=== PATIENT | male | born 1965 | race American Indian/Alaskan Native ===

== ENCOUNTER 2018-05-08 14:58 | Inpatient (IN) | payer MEDICAID ==
[2018-05-08] MEDS ORDERED: Sodium Chloride 0.9% 1,000 ML IV ONE (15:45)
[2018-05-08] MEDS ORDERED: Sodium Chloride 0.9% 1,000 ML ONE ×2 (16:15→18:59)
[2018-05-08 16:18] LABS: BASO # 0.1 K/uL (0.0-0.2); BASO % 0.4 % (0.0-2.0); EOS # 0.1 K/uL (0.0-0.7); EOS % 0.7 % (0.0-4.0); HEMOGLOBIN 12.9 g/dL (12.0-18.0); LYMPH # 1.2 K/uL (1.0-4.3); LYMPH % 8.3 % (20.0-40.0); MEAN CELL VOLUME 83.7 fL (80.0-94.0); MEAN CORPUSCULAR HEMOGLOBIN 27.5 pg (27.0-31.0); MEAN CORPUSCULAR HGB CONC 32.8 g/dL (33.0-37.0); MEAN PLATELET VOLUME 9.3 fL (7.2-11.7); MONO % 14.3 % (0.0-10.0); NEUT # 10.7 K/uL (1.8-7.0); NEUT % 76.3 % (50.0-75.0); PLATELET COUNT 260 K/uL (130-400); RBC 4.69 Mil/uL (4.40-5.90); RED CELL DISTRIBUTION WIDTH 15.1 % (11.5-14.5)
--- NOTE | 2018-05-08 16:18 | RAD ---
HISTORY: fever COMPARISON: No prior. TECHNIQUE: Chest PA and lateral FINDINGS: Examination limited by habitus. LUNGS: Left upper lobe hazy consolidation. Please note that chest x-ray has limited sensitivity for the detection of pulmonary masses. PLEURA: No significant pleural effusion identified. No definite pneumothorax . CARDIOVASCULAR: The cardiomediastinal silhouette appears within normal limits of size. OSSEOUS STRUCTURES: No acute osseous abnormality identified. VISUALIZED UPPER ABDOMEN: Unremarkable. OTHER FINDINGS: None. IMPRESSION: Hazy left upper lobe consolidation consistent with pneumonia.
[2018-05-08 16:21] LABS: SQUAMOUS EPITHIAL < 1 /hpf (0-5); URINE BACTERIA RARE (<OCC); URINE BILIRUBIN NEGATIVE (NEGATIVE); URINE CLARITY Hazy (Clear); URINE COLOR Amber (YELLOW); URINE GLUCOSE (UA) NORMAL (Normal); URINE HYALINE CAST >20 /lpf (0-2); URINE LEUKOCYTE ESTERASE NEG Leu/uL (Negative); URINE PROTEIN 2+ mg/dL (NEGATIVE); URINE UROBILINOGEN NORMAL mg/dL (0.2-1.0)
[2018-05-08 16:23] LABS: URINE BLOOD TRACE (NEGATIVE)
--- NOTE | 2018-05-08 16:25 | C.PDOC ---
History Of Present Illness 40 year old female presents to the ED for evaluation of subjective fever associated with body aches for the last 4-5 days. Patient reports he visited [place] today where he has a dizzy episode near syncope and was sent to the ED. Denies dysuria, vomiting, diarrhea, rash, recent travel, chest pain, shortness of breath, cough, sore throat, and any other associated symptoms. Time Seen by Provider: 05/08/18 15:19 Chief Complaint (Nursing): Flu-like Symptoms History Per: Patient History/Exam Limitations: no limitations Onset/Duration Of Symptoms: Days Current Symptoms Are (Timing): Still Present Recent travel outside of the [place]: No Past Medical History Reviewed: Historical Data, Nursing Documentation, Vital Signs Vital Signs: Last Vital Signs Temp 99.5 F 05/08/18 15:08 Pulse 100 H 05/08/18 15:08 Resp 18 05/08/18 15:08 BP 150/102 H 05/08/18 15:08 Pulse Ox 99 05/08/18 15:08 Family History: States: Unknown Family Hx - Social History Hx Alcohol Use: Yes Hx Substance Use: No - Immunization History Hx Tetanus Toxoid Vaccination: No Hx Influenza Vaccination: No Hx Pneumococcal Vaccination: No Review Of Systems Except As Marked, All Systems Reviewed And Found Negative. Constitutional: Positive for: Fever (subjective.). Negative for: Chills Cardiovascular: Negative for: Chest Pain Respiratory: Negative for: Cough, Shortness of Breath Gastrointestinal: Negative for: Nausea, Vomiting, Diarrhea, Other (dysuria.) Skin: Negative for: Rash Neurological: Positive for: Dizziness, Other (near syncope. ) Physical Exam - Physical Exam Appears: Non-toxic, No Acute Distress Skin: Normal Color, Warm, Dry Head: Atraumatic, Normacephalic Eye(s): bilateral: Normal Inspection Oral Mucosa: Moist Neck: Normal ROM, Supple Chest: Symmetrical, No Deformity Cardiovascular: Rhythm Regular, No Murmur Respiratory: Normal Breath Sounds, No Rales, No Rhonchi, No Wheezing Gastrointestinal/Abdominal: Normal Exam, Soft, No Tenderness Extremity: Normal ROM (x4) Neurological/Psych: Oriented x3, Normal Speech, Normal Motor, Normal Sensation, Normal Reflexes Gait: Steady ED Course And Treatment - Laboratory Results Result Diagrams: 05/08/18 16:12 05/08/18 16:12 O2 Sat by Pulse Oximetry: 99 (RA) Pulse Ox Interpretation: Normal - Other Rad CXR X-Ray: Viewed By Me, Read By Radiologist Interpretation: FINDINGS: Examination limited by habitus. LUNGS: Left upper lobe hazy consolidation. Please note that chest x-ray has limited sensitivity for the detection of pulmonary masses. PLEURA: No significant pleural effusion identified. No definite pneumothorax . CARDIOVASCULAR: The cardiomediastinal silhouette appears within normal limits of size. OSSEOUS STRUCTURES: No acute osseous abnormality identified. VISUALIZED UPPER ABDOMEN: Unremarkable. OTHER FINDINGS: None. IMPRESSION: Hazy left upper lobe consolidation consistent with pneumonia. Medical Decision Making Medical Decision Making: Plan: --Blood sent. --Glucose, POC Routine. --Influenza A B --Urinalysis --CXR Blood cultures sent. PAtient was found to have a creatinine of 1.7 which is new and elevated WBC. CAse was discussed with Dr. Vaca who agrees to place the patient on Obs regular. Avelox IV ordered. Disposition - Disposition Disposition: HOSPITALIZED Disposition Time: 17:00 Condition: STABLE - POA Present On Arrival: None - Clinical Impression Clinical Impression: Acute kidney injury, Pneumonia - PA / COMMUNICATIONS INTERN / Resident Statement MD/DO has reviewed & agrees with the documentation as recorded. - Scribe Statement The provider has reviewed the documentation as recorded by the Scribe (Teresa Newell) All medical record entries made by the Scribe were at my direction and personally dictated by me. I have reviewed the chart and agree that the record accurately reflects my personal performance of the history, physical exam, medical decision making, and the department course for this patient. I have also personally directed, reviewed, and agree with the discharge instructions and disposition.
[2018-05-08 16:30] LABS: CALCIUM 8.2 mg/dl (8.6-10.4)
[2018-05-08 17:11] LABS: BANDS 1 % (0-2); EOSINOPHIL 2 % (0-4); LYMPHOCYTE 10 % (20-40); MONOCYTE 15 % (0-10); TOTAL CELLS COUNTED 100
[2018-05-08 17:12] LABS: NEUTROPHIL 72 % (50-75); PLATELET ESTIMATE NORMAL (NORMAL)
[2018-05-08] MEDS ORDERED: Moxifloxacin IV 400mg/250ml NS 400 MG/250 ML BAG IV ONE (17:41)
[2018-05-08] MEDS ORDERED: Sodium Chloride 0.9% 1,000 ML IV SCH (18:00)
--- NOTE | 2018-05-08 18:15 | CP.PCM.HP ---
<Sheree Rubio - Last Filed: 05/08/18 18:57> History of Present Illness - History of Present Illness History of Present Illness: CC: Fever HPI: Patient is a 52 year old male with history of chronic sinusitis, who presents to the ED with complaints of subjective fever, generalized body aches and dry cough that started last Monday. Patient reports that he woke up with a fever last week Monday morning with Tmax of 102.5 at home, which he has been taking over the counter Tylenol for every 6 hours. Patient admits to associated symptoms of dry cough that is exacerbated with laying down, diffuse headache, blurry vision, dizziness (first episode during the weekend while [place], which was resolved with sitting down and second episode this morning), chills, onset of night sweat that started last night, palpitations, loss of appetite. 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 Denies hx of current or former tobacco use and illicit drug use but admits to occasional wine intake Present on Admission - Present on Admission Any Indicators Present on Admission: No Review of Systems - Constitutional Constitutional: Chills, Fatigue, Fever, Headache, Malaise, Night Sweats, Weakness. absent: Frequent Falls, Increased Appetite, Weight Loss - EENT Eyes: Blurred Vision Ears: Dizziness - Cardiovascular Cardiovascular: Palpitations. absent: Chest Pain, Chest Pain at Rest, Diaphoresis, Dyspnea, Dyspnea on Exertion, Leg Edema - Respiratory Respiratory: Cough. absent: Wheezing, Snoring - Gastrointestinal Gastrointestinal: absent: Abdominal Pain, Belching, Bloating, Constipation, Diarrhea, Hematochezia, Nausea, Vomiting - Genitourinary Genitourinary: absent: Change in Urinary Stream, Difficulty Urinating, Dysuria - Musculoskeletal Musculoskeletal: absent: Back Pain - Integumentary Integumentary: absent: Bleeding Lesions, Change in Nails, Dry Skin - Neurological Neurological: Dizziness. absent: Confusion, Disequilibrium, Lack of Coordination, Weakness - Psychiatric Psychiatric: Change in Appetite. absent: Anxiety - Endocrine Endocrine: Fatigue, Palpitations Past Patient History - Past Social History Smoking Status: Never Smoked - PSYCHIATRIC Hx Substance Use: No - SURGICAL HISTORY Hx Surgeries: No - ANESTHESIA Hx Anesthesia: No Meds Home Medications: Home Medication List Medication Instructions Recorded Confirmed Type Levofloxacin [Levaquin] 750 mg PO DAILY #10 tablet 05/12/18 Rx Allergies/Adverse Reactions: Allergies Allergy/AdvReac Type Severity Reaction Status Date / Time No Known Allergies Allergy Verified 05/08/18 15:17 Physical Exam - Constitutional Appears: No Acute Distress - Head Exam Head Exam: ATRAUMATIC, NORMAL INSPECTION - Eye Exam Eye Exam: EOMI, Normal appearance Pupil Exam: NORMAL ACCOMODATION, PERRL - ENT Exam ENT Exam: Mucous Membranes Dry Additional comments: No exudate, no erythema - Neck Exam Neck exam: Negative for: Lymphadenopathy, Tenderness, Thyromegaly - Respiratory Exam Respiratory Exam: Decreased Breath Sounds, NORMAL BREATHING PATTERN. absent: Accessory Muscle Use, Chest Wall Tenderness, Rhonchi, Wheezes Additional comments: Bilateral lower lobe (L>R) - Cardiovascular Exam Cardiovascular Exam: Tachycardia, REGULAR RHYTHM, +S1, +S2 - GI/Abdominal Exam GI & Abdominal Exam: Normal Bowel Sounds, Soft. absent: Diminished Bowel Sounds, Distended, Firm, Guarding, Tenderness - Extremities Exam Extremities exam: Positive for: normal inspection. Negative for: calf tenderness, pedal edema - Back Exam Back exam: NORMAL INSPECTION. absent: CVA tenderness (L), CVA tenderness (R) - Neurological Exam Neurological exam: Alert, Oriented x3 - Psychiatric Exam Psychiatric exam: Normal Affect, Normal Mood - Skin Skin Exam: Normal Color Results - Vital Signs Recent Vital Signs: Last Vital Signs Temp 99.5 F 05/08/18 15:08 Pulse 100 H 05/08/18 15:08 Resp 18 05/08/18 15:08 BP 150/102 H 05/08/18 15:08 Pulse Ox 99 05/08/18 16:35 - Labs Result Diagrams: 05/08/18 16:12 05/08/18 16:12 Labs: Laboratory Results - last 24 hr 05/08/18 05/08/18 05/08/18 15:14 16:12 16:12 WBC 14.0 H RBC 4.69 Hgb 12.9 Hct 39.2 MCV 83.7 MCH 27.5 MCHC 32.8 L RDW 15.1 H Plt Count 260 MPV 9.3 Neut % (Auto) 76.3 H Lymph % (Auto) 8.3 L Donley % (Auto) 14.3 H Eos % (Auto) 0.7 Baso % (Auto) 0.4 Neut # (Auto) 10.7 H Lymph # (Auto) 1.2 Donley # (Auto) 2.0 H Eos # (Auto) 0.1 Baso # (Auto) 0.1 Neutrophils % (Manual) 72 Band Neutrophils % 1 Lymphocytes % (Manual) 10 L Monocytes % (Manual) 15 H Eosinophils % (Manual) 2 Platelet Estimate Normal Sodium Potassium Chloride Carbon Dioxide Anion Gap BUN Creatinine Est GFR ( Amer) Est GFR (Non-Af Amer) POC Glucose (mg/dL) 106 Random Glucose Calcium Total Bilirubin AST ALT Alkaline Phosphatase Total Protein Albumin Globulin Albumin/Globulin Ratio Urine Color Urine Clarity Urine pH Ur Specific Pruden Urine Protein Urine Glucose (UA) Urine Ketones Urine Blood Urine Nitrate Urine Bilirubin Urine Urobilinogen Ur Leukocyte Esterase Urine WBC (Auto) Urine RBC (Auto) Ur Squamous Epith Cells Urine Bacteria Hyaline Casts Influenza Typ A,B (EIA) Negative for flu a/b 05/08/18 05/08/18 16:12 16:12 WBC RBC Hgb Hct MCV MCH MCHC RDW Plt Count MPV Neut % (Auto) Lymph % (Auto) Donley % (Auto) Eos % (Auto) Baso % (Auto) Neut # (Auto) Lymph # (Auto) Donley # (Auto) Eos # (Auto) Baso # (Auto) Neutrophils % (Manual) Band Neutrophils % Lymphocytes % (Manual) Monocytes % (Manual) Eosinophils % (Manual) Platelet Estimate Sodium 138 Potassium 4.0 Chloride 98 Carbon Dioxide 29 Anion Gap 15 BUN 22 H Creatinine 1.7 H Est GFR ( Amer) 52 Est GFR (Non-Af Amer) 43 POC Glucose (mg/dL) Random Glucose 116 H Calcium 8.2 L Total Bilirubin 0.6 AST 66 H ALT 87 H Alkaline Phosphatase 272 H Total Protein 8.2 Albumin 4.0 Globulin 4.2 H Albumin/Globulin Ratio 1.0 Urine Color Rasheeda Urine Clarity Hazy Urine pH 5.0 Ur Specific Pruden 1.025 Urine Protein 2+ H Urine Glucose (UA) Normal Urine Ketones Negative Urine Blood Trace Urine Nitrate Negative Urine Bilirubin Negative Urine Urobilinogen Normal Ur Leukocyte Esterase Neg Urine WBC (Auto) 5 Urine RBC (Auto) 4 H Ur Squamous Epith Cells < 1 Urine Bacteria Rare Hyaline Casts >20 H Influenza Typ A,B (EIA) Assessment & Plan (1) Community acquired pneumonia Assessment and Plan: On admission diagnostic work-up - WBC: 14 - Temp: 99.5 -Chest x-ray: Hazy left upper lobe consolidation - Negative for influenza and urine legionella pneumonia - F/u strep pneumoniae and Mycoplasma pneumoniae Medications/Management: - Rocephin 1gm IV daily - Zithromax 500mg IV daily - Florastor 250mg PO BID - Ice packs for fever; tylenol or motrin can be given once if fever is not con trolled with ice packs overnight. Will reconsider addition of Motrin in the am for fever prn Status: Acute (2) Acute kidney injury Assessment and Plan: Possibly secondary to dehydration BUN/Cr: 27/1.7 1/2 NS @ 100mls/hr Continue to monitor with am labs Status: Acute (3) Elevated liver enzymes Assessment and Plan: Possibly secondary to dehydration Continue hydration Continue to monitor with am labs - Rocephin is hepatic dosed as well as Zithromax Status: Acute (4) Elevated blood pressure reading without diagnosis of hypertension Assessment and Plan: Possible secondary to present illness Lopressor 5mg IV once IV hydration switched from NS to 1/2NS Continue to monitor with vital Q4H Will initiated anti-hypertensive medications after overnight BP trends Status: Acute (5) Prophylactic measure Assessment and Plan: GI: Not indicated DVT: SCDs Heart healthy diet All plans and management discussed with Dr. Velázquez Status: Acute <Meseret Velázquez - Last Filed: 05/23/18 18:21> Results - Vital Signs Recent Vital Signs: Last Vital Signs Temp 99.2 F 05/12/18 07:40 Pulse 108 H 05/12/18 07:40 Resp 20 05/12/18 07:40 BP 148/93 H 05/12/18 07:40 Pulse Ox 96 05/12/18 07:40 - Labs Result Diagrams: 05/12/18 11:34 05/12/18 11:34 Attending/Attestation - Attestation I have personally seen and examined this patient.: Yes I have fully participated in the care of the patient.: Yes I have reviewed all pertinent clinical information: Yes Notes (Text): seen and examined by me patient has acute renal failure likely secondary to pre renal,fever and pneumoni a continue antibiotics and hydrate follow plan discussed with the resident we will follow up his creatinine
[2018-05-08 18:29] LABS: LEGIONELLA AG URINE NEGATIVE (NEGATIVE)
[2018-05-08 18:54] LABS: ABG ALLEN TEST PO; ARTERIAL BLOOD GAS HCO3 24.1 mmol/L (21-28); ARTERIAL BLOOD GAS HEMOGLOBIN 12.3 g/dL (11.7-17.4); ARTERIAL BLOOD GAS O2 SAT 98.7 % (95-98); ARTERIAL BLOOD GAS PCO2 30 mm/Hg (35-45); ARTERIAL BLOOD GAS PH 7.47 (7.35-7.45); ARTERIAL BLOOD GAS PO2 90 mm/Hg (80-100); ARTERIAL BLOOD GAS TCO2 22.7 mmol/L (22-28)
[2018-05-08] MEDS ORDERED: Metoprolol 1 mg/ml Inj IVP ONE (19:06)
[2018-05-08] MEDS ORDERED: Moxifloxacin IV 400mg/250ml NS 400 MG/250 ML BAG IVPB ONE ×2 (19:17→19:37)
[2018-05-08] MEDS ORDERED: Metoprolol 1 mg/ml Inj ONE (19:26)
[2018-05-08] MEDS: Sodium Chloride 0.45% 1,000 ML IV SCH (19:30)
[2018-05-08] MEDS ORDERED: Sodium Chloride 0.45% 1,000 ML IV ONE (19:37)
[2018-05-08 23:21] VITALS: RESP 20
[2018-05-09] MEDS: Sodium Chloride 0.45% 1,000 ML IV SCH ×3 (05:15→20:37)
--- NOTE | 2018-05-09 07:38 | CP.PCM.PCO ---
Physician Communication Note - Physician Communication Note Physician Communication Note: f/u outpatient for pna and flu vaccines; patient is in hosp for pnuemonia
[2018-05-09 08:42] LABS: BASO # 0.1 K/uL (0.0-0.2); BASO % 0.6 % (0.0-2.0); EOS # 0.1 K/uL (0.0-0.7); EOS % 1.2 % (0.0-4.0); HEMOGLOBIN 12.7 g/dL (12.0-18.0); LYMPH # 1.4 K/uL (1.0-4.3); LYMPH % 11.8 % (20.0-40.0); MEAN CELL VOLUME 83.1 fL (80.0-94.0); MEAN CORPUSCULAR HEMOGLOBIN 27.7 pg (27.0-31.0); MEAN CORPUSCULAR HGB CONC 33.4 g/dL (33.0-37.0); MEAN PLATELET VOLUME 9.5 fL (7.2-11.7); MONO # 1.7 K/uL (0.0-0.8); MONO % 14.5 % (0.0-10.0); NEUT # 8.6 K/uL (1.8-7.0); NEUT % 71.9 % (50.0-75.0); RBC 4.57 Mil/uL (4.40-5.90); WHITE BLOOD COUNT 11.9 K/uL (4.8-10.8)
[2018-05-09 08:56] LABS: ALBUMIN 3.9 g/dL (3.5-5.0); ALT/SGPT 78 U/L (21-72); AST/SGOT 57 U/L (17-59); BLOOD UREA NITROGEN 17 mg/dL (9-20); CALCIUM 8.5 mg/dl (8.6-10.4); GFR NON-AFRICAN AMERICAN 54
[2018-05-09] MEDS: Azithromycin 500 MG in Sodium Chloride 0.9% 250 ML IVPB SCH (09:32)
[2018-05-09] MEDS: Saccharomyces Boulardi 250 mg Cap PO SCH ×2 (09:33→17:25)
[2018-05-09] MEDS ORDERED: Influenza Vaccine 60 MCG/0.5 ML SYR (3 yr & up) IM ONE (10:00)
[2018-05-09] MEDS ORDERED: Pneumococcal 23-Valent Vaccine IM ONE (10:00)
[2018-05-09] MEDS: Oxymetazoline 0.05% Nasal Spray (30 ml) NS PRN (15:06)
--- NOTE | 2018-05-09 17:32 | CP.PCM.PN ---
<Sergio Sosa - Last Filed: 05/09/18 17:28> Subjective - Date & Time of Evaluation Date of Evaluation: 05/09/18 Time of Evaluation: 09:40 - Subjective Subjective: Medicine Progress Note for Hospitalist Service Sergio Sosa DO PGY-1, [employer] Handle [employer] Pt seen and examined at bedside this am. Denies any acute complaints, reports he feels the same since yesterday evening clinically. No acute events reported overnight. Pt reports that he has been spiking fevers, but denies chills, chest pain, sob, n/v/d/c, abd pain, urinary complaints, or other symptoms. Tolerating PO diet well. Objective - Vital Signs/Intake and Output Vital Signs (last 24 hours): Temp Pulse Resp BP Pulse Ox 99.5 F 110 H 20 131/85 96 05/09/18 16:00 05/09/18 16:00 05/09/18 16:00 05/09/18 16:00 05/09/18 16:00 Intake and Output: 05/09/18 05/09/18 06:59 18:59 Intake Total 1040 1300 Balance 1040 1300 - Medications Medications: Current Medications Acetaminophen (Tylenol 325mg Tab) 650 mg PO Q4 PRN PRN Reason: Fever >100.4 F Last Admin: 05/09/18 13:20 Dose: 650 mg Albuterol/Ipratropium (Duoneb 3 Mg/0.5 Mg (3 Ml) Ud) 3 ml INH RQ6 VIVIANA Heparin Sodium (Porcine) (Heparin) 5,000 units SC Q12 VIVIANA Last Admin: 05/09/18 09:33 Dose: 5,000 units Ceftriaxone Sodium 1 gm/ (Sodium Chloride) 100 mls @ 100 mls/hr IVPB DAILY VIVIANA; Protocol Last Admin: 05/09/18 09:32 Dose: 100 mls/hr Azithromycin 500 mg/ Sodium (Chloride) 250 mls @ 250 mls/hr IVPB DAILY VIVIANA; Protocol Last Admin: 05/09/18 09:32 Dose: 250 mls/hr Sodium Chloride (Sodium Chloride 0.45%) 1,000 mls @ 100 mls/hr IV .Q10H VIVIANA Last Admin: 05/09/18 05:15 Dose: Not Given Oxymetazoline HCl (Afrin 0.05%) 0 ml NS Q12H PRN PRN Reason: Nasal congestion Last Admin: 05/09/18 15:06 Dose: 1 spr Aryan Moreno (Florastor) 250 mg PO BID VIVIANA Last Admin: 05/09/18 17:25 Dose: 250 mg - Labs Labs: 05/09/18 08:29 05/09/18 08:29 - Constitutional Appears: Non-toxic, No Acute Distress - Head Exam Head Exam: ATRAUMATIC, NORMOCEPHALIC - Eye Exam Eye Exam: EOMI, Normal appearance, PERRL - ENT Exam ENT Exam: Mucous Membranes Moist - Respiratory Exam Respiratory Exam: Rales, NORMAL BREATHING PATTERN. absent: Rhonchi, Wheezes Additional comments: Rales/crackles presents in L lung delgado - Cardiovascular Exam Cardiovascular Exam: REGULAR RHYTHM, +S1, +S2. absent: Gallop, Rubs, Murmur - GI/Abdominal Exam GI & Abdominal Exam: Soft, Normal Bowel Sounds. absent: Distended, Firm, Guarding, Rigid, Tenderness, Organomegaly, Rebound - Extremities Exam Extremities Exam: Full ROM, Normal Capillary Refill, Normal Inspection. absent: Calf Tenderness, Pedal Edema - Neurological Exam Neurological Exam: Alert, Awake, CN II-XII Intact, Oriented x3 - Psychiatric Exam Psychiatric exam: Normal Affect, Normal Mood - Skin Skin Exam: Dry, Intact, Normal Color, Warm Assessment and Plan - Assessment and Plan (Free Text) Plan: Community acquired pneumonia WBC: 11 today, improving from 14 yesterday Pt continues to spike fevers, continue to monitor Chest x-ray: Hazy left upper lobe consolidation Negative for influenza and urine legionella pneumonia F/u strep pneumoniae and Mycoplasma pneumoniae Rocephin 1gm IV daily Zithromax 500mg IV daily Florastor 250mg PO BID Tylenol prn for fevers; AST/ALT trending down today Added duonebs q6h prn for shortness of breath; Afrin added prn for nasal congestion Acute kidney injury Possibly secondary to dehydration BUN/Cr: 27/1.7 on admission; today improved to 17/1.4 1/2 NS @ 100mls/hr Continue to monitor Elevated liver enzymes Possibly secondary to dehydration Continue hydration Continue to monitor Rocephin is hepatically dosed as well as Zithromax Elevated blood pressure reading without diagnosis of hypertension - resolved Possible secondary to present illness S/p Lopressor 5mg IV once IV hydration switched from NS to 1/2NS Continue to monitor with vital Q4H PPX GI: Not indicated DVT: SCDs Heart healthy diet Pt seen, examined with, and plan d/w Dr. Velázquez, attending physician. Sergio Sosa DO PGY-1, M[employer] Handle As[employer]er Pager #[phone] <Meseret Velázquez - Last Filed: 05/24/18 18:02> Objective - Vital Signs/Intake and Output Vital Signs (last 24 hours): Temp Pulse Resp BP Pulse Ox 99.2 F 108 H 20 148/93 H 96 05/12/18 07:40 05/12/18 07:40 05/12/18 07:40 05/12/18 07:40 05/12/18 07:40 - Labs Labs: 05/12/18 11:34 05/12/18 11:34 Attending/Attestation - Attestation I have personally seen and examined this patient.: Yes I have fully participated in the care of the patient.: Yes I have reviewed all pertinent clinical information, including history, physical exam and plan: Yes Notes (Text): Seen and examined by me. patient has fever spikes continue antibiotics Discussed with the resident and I agree with the documentation
[2018-05-09 19:32] LABS: N MENINGITIS ACY/W135 NEGATIVE (NEGATIVE); N MENINGITIS B/ECOLI K1 NEGATIVE (NEGATIVE); STREP PNEUMONIAE NEGATIVE (NEGATIVE); STREPTOCOCCUS B NEGATIVE (NEGATIVE)
[2018-05-10] MEDS: Albuterol-Ipratrop 3 mg / 0.5 (3 ml) UD INH SCH ×4 (01:32→19:18)
[2018-05-10] MEDS: Sodium Chloride 0.45% 1,000 ML IV SCH ×2 (06:47→21:17)
[2018-05-10 07:26] LABS: BASO # 0.1 K/uL (0.0-0.2); BASO % 0.7 % (0.0-2.0); EOS # 0.3 K/uL (0.0-0.7); EOS % 2.6 % (0.0-4.0); HEMOGLOBIN 11.5 g/dL (12.0-18.0); LYMPH # 1.4 K/uL (1.0-4.3); LYMPH % 11.7 % (20.0-40.0); MEAN CELL VOLUME 83.6 fL (80.0-94.0); MEAN CORPUSCULAR HEMOGLOBIN 27.6 pg (27.0-31.0); MEAN PLATELET VOLUME 9.6 fL (7.2-11.7); MONO # 1.8 K/uL (0.0-0.8); MONO % 15.6 % (0.0-10.0); NEUT # 8.1 K/uL (1.8-7.0); NEUT % 69.4 % (50.0-75.0); RBC 4.16 Mil/uL (4.40-5.90); RED CELL DISTRIBUTION WIDTH 15.1 % (11.5-14.5); WHITE BLOOD COUNT 11.6 K/uL (4.8-10.8)
[2018-05-10 07:55] LABS: ALBUMIN 3.6 g/dL (3.5-5.0); BLOOD UREA NITROGEN 13 mg/dL (9-20); CALCIUM 8.3 mg/dl (8.6-10.4); GFR NON-AFRICAN AMERICAN > 60
[2018-05-10 07:56] LABS: ALB/GLOB RATIO 0.9 (1.0-2.1); ALT/SGPT 73 U/L (21-72); AST/SGOT 53 U/L (17-59)
[2018-05-10] MEDS: Oxymetazoline 0.05% Nasal Spray (30 ml) NS PRN (09:32)
[2018-05-10] MEDS: Azithromycin 500 MG in Sodium Chloride 0.9% 250 ML IVPB SCH (09:33)
[2018-05-10] MEDS: Saccharomyces Boulardi 250 mg Cap PO SCH ×2 (09:33→17:27)
--- NOTE | 2018-05-10 19:09 | CP.PCM.PN ---
Subjective - Date & Time of Evaluation Date of Evaluation: 05/10/18 Time of Evaluation: 14:00 - Subjective Subjective: Seen and examined,has fever spikes,chest tightness improves with neb treatment,cough no sob Objective - Vital Signs/Intake and Output Vital Signs (last 24 hours): Temp Pulse Resp BP Pulse Ox 99.7 F H 111 H 20 151/89 H 95 05/10/18 15:49 05/10/18 15:49 05/10/18 15:49 05/10/18 15:49 05/10/18 16:49 Intake and Output: 05/10/18 05/11/18 18:59 06:59 Intake Total 1280 Balance 1280 - Medications Medications: Current Medications Acetaminophen (Tylenol 325mg Tab) 650 mg PO Q4 PRN PRN Reason: Fever >100.4 F Last Admin: 05/10/18 11:30 Dose: 650 mg Albuterol/Ipratropium (Duoneb 3 Mg/0.5 Mg (3 Ml) Ud) 3 ml INH RQ6 VIVIANA Last Admin: 05/10/18 14:27 Dose: 3 ml Famotidine (Pepcid) 40 mg PO DAILY VIVIANA Last Admin: 05/10/18 09:32 Dose: 40 mg Heparin Sodium (Porcine) (Heparin) 5,000 units SC Q12 VIVIANA Last Admin: 05/10/18 09:33 Dose: 5,000 units Ceftriaxone Sodium 1 gm/ (Sodium Chloride) 100 mls @ 100 mls/hr IVPB DAILY VIVIANA; Protocol Last Admin: 05/10/18 09:33 Dose: 100 mls/hr Azithromycin 500 mg/ Sodium (Chloride) 250 mls @ 250 mls/hr IVPB DAILY VIVIANA; Protocol Last Admin: 05/10/18 09:33 Dose: 250 mls/hr Sodium Chloride (Sodium Chloride 0.45%) 1,000 mls @ 100 mls/hr IV .Q10H VIVIANA Last Admin: 05/10/18 06:47 Dose: 100 mls/hr Oxymetazoline HCl (Afrin 0.05%) 0 ml NS Q12H PRN PRN Reason: Nasal congestion Last Admin: 05/10/18 09:32 Dose: 1 spr Saccharomyces Boulardii (Florastor) 250 mg PO BID VIVIANA Last Admin: 05/10/18 17:27 Dose: 250 mg - Labs Labs: 05/10/18 07:06 05/10/18 07:06 - Constitutional Appears: No Acute Distress - Head Exam Head Exam: NORMAL INSPECTION - Eye Exam Eye Exam: Normal appearance - ENT Exam ENT Exam: Mucous Membranes Moist - Respiratory Exam Respiratory Exam: Rales, NORMAL BREATHING PATTERN. absent: Chest Wall Tende rness, Wheezes, Respiratory Distress - Cardiovascular Exam Cardiovascular Exam: REGULAR RHYTHM - GI/Abdominal Exam GI & Abdominal Exam: Soft, Normal Bowel Sounds - Exam External exam: Ecchymosis - Extremities Exam Extremities Exam: Full ROM, Normal Capillary Refill, Normal Inspection - Back Exam Back Exam: NORMAL INSPECTION - Neurological Exam Neurological Exam: Awake, Oriented x3 - Psychiatric Exam Psychiatric exam: Normal Mood - Skin Skin Exam: Dry, Intact, Normal Color Assessment and Plan - Assessment and Plan (Free Text) Plan: 1. Community acquired pneumonia/left upper lobe Pt continues to spike fevers,not stable for discharge Chest x-ray: Hazy left upper lobe consolidation Negative for influenza and urine legionella pneumonia F/u strep pneumoniae and Mycoplasma pneumoniae Rocephin 1gm IV daily Zithromax 500mg IV daily Florastor 250mg PO BID Tylenol prn for fevers,monitor LFT Added duonebs q6h prn for shortness of breath 2. Acute kidney injury Possibly secondary to dehydration resolved 3. Elevated liver enzymes 4. PPX GI: Not indicated DVT: SCDs Heart healthy diet
[2018-05-11] MEDS: Albuterol-Ipratrop 3 mg / 0.5 (3 ml) UD INH SCH ×4 (02:10→19:33)
[2018-05-11] MEDS: Sodium Chloride 0.45% 1,000 ML IV SCH ×3 (05:36→17:23)
[2018-05-11 07:14] LABS: BASO # 0.1 K/uL (0.0-0.2); BASO % 0.6 % (0.0-2.0); EOS # 0.4 K/uL (0.0-0.7); EOS % 3.4 % (0.0-4.0); LYMPH # 1.6 K/uL (1.0-4.3); LYMPH % 14.7 % (20.0-40.0); MEAN CELL VOLUME 83.3 fL (80.0-94.0); MEAN CORPUSCULAR HEMOGLOBIN 27.9 pg (27.0-31.0); MEAN CORPUSCULAR HGB CONC 33.5 g/dL (33.0-37.0); MONO # 1.6 K/uL (0.0-0.8); NEUT % 66.3 % (50.0-75.0); NRBC % 0.1 % (0.0-2.0); RBC 4.31 Mil/uL (4.40-5.90); RED CELL DISTRIBUTION WIDTH 15.2 % (11.5-14.5); WHITE BLOOD COUNT 10.6 K/uL (4.8-10.8)
[2018-05-11 07:39] LABS: ALB/GLOB RATIO 0.9 (1.0-2.1); ALBUMIN 3.7 g/dL (3.5-5.0); ALT/SGPT 61 U/L (21-72); AST/SGOT 42 U/L (17-59); BLOOD UREA NITROGEN 11 mg/dL (9-20); CALCIUM 8.7 mg/dl (8.6-10.4); GFR NON-AFRICAN AMERICAN > 60
[2018-05-11] MEDS: Saccharomyces Boulardi 250 mg Cap PO SCH ×2 (09:53→17:22)
[2018-05-11] MEDS: Azithromycin 500 MG in Sodium Chloride 0.9% 250 ML IVPB SCH (10:57)
--- NOTE | 2018-05-11 12:31 | RAD ---
Date of service: 2018-05-11 11:59:06 HISTORY: pneumonia,fever spikes,AP and lat view chest x ray COMPARISON: Comparison chest 05/08/2018 TECHNIQUE: Chest PA and lateral FINDINGS: LUNGS: Re demonstrated is vague patchy pneumonia in the left upper/mid lung field which has progressed. Suspect mild left basilar atelectasis PLEURA: No significant pleural effusion identified. No pneumothorax apparent. CARDIOVASCULAR: Normal. OSSEOUS STRUCTURES: No significant abnormalities. VISUALIZED UPPER ABDOMEN: Normal. OTHER FINDINGS: None. IMPRESSION: . Slight progression pneumonia left upper and left mid lung field. Suspect mild left basilar atelectasis
--- NOTE | 2018-05-11 18:37 | CP.PCM.CON ---
History of Present Illness - History of Present Illness History of Present Illness: 52 year old male with history of chronic sinusitis came to ER with fever, generalized body aches and dry cough . Despite appropriate IV rx he continues to spike fevers and ID consult was requested Thus far only his urine c/s is positive for Klebsiella - however he denies complaints His CXR shows infiltrates greater in [place] and LML which have progressed since admission PMHx: Chronic sinus infection PSHx: Denies Medications: Zytrec Allergies: NKDA Social Hx: Denies hx of current or former tobacco use and illicit drug use Review of Systems - Review of Systems All systems: reviewed and no additional remarkable complaints except - Constitutional Constitutional: Anorexia, Chills, Fever - EENT Eyes: absent: As Per HPI, Blind Spots, Blurred Vision, Change in Vision, Decreased Night Vision, Diplopia, Discharge, Dry Eye, Exophthalmos, Floaters, Irritation, Itchy Eyes, Loss of Peripheral Vision, Pain, Photophobia, Requires Corrective Lenses, Sees Flashes, Spots in Vision, Tunnel Vision, Other Visual Disturbances, Loss of Vision, Other Ears: absent: As Per HPI, Decreased Hearing, Ear Discharge, Ear Pain, Tinnitus, Abnormal Hearing, Disequilibrium, Dizziness, Other Nose/Mouth/Throat: absent: As Per HPI, Epistaxis, Nasal Congestion, Nasal Discharge, Nasal Obstruction, Nasal Trauma, Nose Pain, Post Nasal Drip, Sinus Pain, Sinus Pressure, Bleeding Gums, Change in Voice, Dental Pain, Dry Mouth, Dysphagia, Halitosis, Hoarsness, Lip Swelling, Mouth Lesions, Mouth Pain, Odynophagia, Sore Throat, Throat Swelling, Tongue Swelling, Facial Pain, Neck Pain, Neck Mass, Other - Cardiovascular Cardiovascular: absent: As Per HPI, Acrocyanosis, Chest Pain, Chest Pain at Rest, Chest Pain with Activity, Claudication, Diaphoresis, Dyspnea, Dyspnea on Exertion, Edema, Irregular Heart Rhythm, Pain Radiating to Arm/Neck/Jaw, Leg Edema, Leg Ulcers, Lightheadedness, Orthopnea, Palpitations, Paroxysmal Nocturnal Dyspnea, Pedal Edema, Radiating Pain, Rapid Heart Rate, Slow Heart Rate, Syncope, Other - Respiratory Respiratory: absent: As Per HPI, Cough, Dyspnea, Hemoptysis, Dyspnea on Exertion, Wheezing, Snoring, Stridor, Pain on Inspiration, Chest Congestion, Excessive Mucous Production, Change in Mucous Color, Pain with Coughing, Other - Gastrointestinal Gastrointestinal: absent: As Per HPI, Abdominal Pain, Belching, Bloating, Change in Bowel Habits, Change in Stool Character, Coffee Ground Emesis, Constipation, Cramping, Diarrhea, Dyspepsia, Dysphagia, Early Satiety, Excessive Flatus, Fecal Incontinence, Heartburn, Hematemesis, Hematochezia, Loose Stools, Melena, Nausea, Odynophagia, Temesmus, Vomiting, Other - Genitourinary Genitourinary: absent: As Per HPI, Change in Urinary Stream, Difficulty Urinating, Dysuria, Flank Pain, Hematuria, Pyuria, Nocturia, Urinary Incontinence, Urinary Frequency, Urinary Hesitance, Urinary Urgency, Voiding Freq/Small Amts, Freq UTI, Hx Renal/Bladder Calculi, Hx /Renal Surgery, Bladder Distension, Other - Musculoskeletal Musculoskeletal: absent: As Per HPI, Abnormal Gait, Arthralgias, Atrophy, Back Pain, Deformity, Joint Swelling, Limited Range of Motion, Loss of Height, Muscle Cramps, Muscle Weakness, Myalgias, Neck Pain, Numbness, Radiating Pain into Limb, Stiffness, Tingling, Other - Integumentary Integumentary: absent: As Per HPI, Acne, Alopecia, Bleeding Lesions, Change in Hair, Change in Nails, Change in Pigmentation, Changing Lesions, Dry Skin, Erythema, Furuncle, Hirsutism, Lesions, New Lesions, Non-Healing Lesions, Photosensitivity, Pruritus, Rash, Skin Pain, Skin Ulcer, Sores, Striae, Swelling, Unusual Bruising, Wounds, Jaundice, Other - Neurological Neurological: absent: As Per HPI, Abnormal Gait, Abnormal Hearing, Abnormal Movements, Abnormal Speech, Behavioral Changes, Burning Sensations, Confusion, Convulsions, Disequilibrium, Dizziness, Numbness, Focal Weakness, Frequent F alls, Headaches, Lack of Coordination, Loss of Vision, Memory Loss, Paresthesias, Radicular Pain, Restless Legs, Sensory Deficit, Syncope, Tingling, Tremor, Vertigo, Weakness, Other Visual Disturbances, Other - Psychiatric Psychiatric: absent: As Per HPI, Abnormal Sleep Pattern, Anhedonia, Anxiety, Auditory Hallucinations, Behavioral Changes, Change in Appetite, Change in Libido, Confusion, Depression, Difficulty Concentrating, Hallucinations, Homicidal Ideation, Hopelessness, Irritability, Memory Loss, Mood Swings, Panic Attacks, Paranoia, Suicidal Ideation, Visual Hallucinations, Tactile Hallucinations, Other - Endocrine Endocrine: absent: As Per HPI, Change in Body Appearance, Change in Libido, Cold Intolorance, Deepening of Voice, Excessive Sweating, Fatigue, Flushing, Heat Intolorance, Increase in Ring/Shoe/Hat Size, Palpitations, Polydipsia, Polyphagia, Polyuria, Other - Hematologic/Lymphatic Hematologic: absent: As Per HPI, Easy Bleeding, Easy Bruising, Lymphadenopathy, Other Past Patient History - Past Medical History & Family History Past Medical History?: Yes - Past Social History Smoking Status: Never Smoked - CARDIAC Hx Cardiac Disorders: No - PULMONARY Hx Respiratory Disorders: No - NEUROLOGICAL Hx Neurological Disorder: No - HEENT Hx HEENT Problems: Yes Hx Sinusitis: Yes - RENAL Hx Chronic Kidney Disease: No - ENDOCRINE/METABOLIC Hx Endocrine Disorders: No - HEMATOLOGICAL/ONCOLOGICAL Hx Blood Disorders: No - INTEGUMENTARY Hx Dermatological Problems: No - MUSCULOSKELETAL/RHEUMATOLOGICAL Hx Musculoskeletal Disorders: No Hx Falls: No - GASTROINTESTINAL Hx Gastrointestinal Disorders: No - GENITOURINARY/GYNECOLOGICAL Hx Genitourinary Disorders: No - PSYCHIATRIC Hx Psychophysiologic Disorder: No Hx Substance Use: No - SURGICAL HISTORY Hx Surgeries: No - ANESTHESIA Hx Anesthesia: Yes Hx Anesthesia Reactions: No Hx Malignant Hyperthermia: No Has any member of the family had a problem w/ anesthesia?: No Meds Allergies/Adverse Reactions: Allergies Allergy/AdvReac Type Severity Reaction Status Date / Time No Known Allergies Allergy Verified 05/08/18 15:17 - Medications Medications: Current Medications Acetaminophen (Tylenol 325mg Tab) 650 mg PO Q4 PRN PRN Reason: Fever >100.4 F Last Admin: 05/10/18 22:22 Dose: 650 mg Albuterol/Ipratropium (Duoneb 3 Mg/0.5 Mg (3 Ml) Ud) 3 ml INH RQ6 VIVIANA Last Admin: 05/11/18 13:37 Dose: 3 ml Famotidine (Pepcid) 40 mg PO DAILY VIVIANA Last Admin: 05/11/18 09:53 Dose: 40 mg Heparin Sodium (Porcine) (Heparin) 5,000 units SC Q12 VIVIANA Last Admin: 05/11/18 09:53 Dose: 5,000 units Ceftriaxone Sodium 1 gm/ (Sodium Chloride) 100 mls @ 100 mls/hr IVPB DAILY VIVIANA; Protocol Last Admin: 05/11/18 10:13 Dose: 100 mls/hr Azithromycin 500 mg/ Sodium (Chloride) 250 mls @ 250 mls/hr IVPB DAILY VIVIANA; Protocol Last Admin: 05/11/18 10:57 Dose: 250 mls/hr Sodium Chloride (Sodium Chloride 0.45%) 1,000 mls @ 100 mls/hr IV .Q10H VIVIANA Last Admin: 05/11/18 17:23 Dose: 100 mls/hr Oxymetazoline HCl (Afrin 0.05%) 0 ml NS Q12H PRN PRN Reason: Nasal congestion Last Admin: 05/10/18 09:32 Dose: 1 spr Saccharomyces Boulardii (Florastor) 250 mg PO BID VIVIANA Last Admin: 05/11/18 17:22 Dose: 250 mg Physical Exam - Constitutional Appears: Non-toxic, No Acute Distress, Chronically Ill - Head Exam Head Exam: ATRAUMATIC, NORMAL INSPECTION, NORMOCEPHALIC - Eye Exam Eye Exam: PERRL. absent: Scleral icterus - ENT Exam ENT Exam: Mucous Membranes Dry, Normal External Ear Exam - Neck Exam Neck exam: Negative for: Lymphadenopathy - Respiratory Exam Respiratory Exam: Decreased Breath Sounds, Rhonchi - Cardiovascular Exam Cardiovascular Exam: REGULAR RHYTHM, +S1, +S2 - GI/Abdominal Exam GI & Abdominal Exam: Diminished Bowel Sounds, Soft. absent: Tenderness - Rectal Exam Rectal Exam: Deferred - Exam Exam: NORMAL INSPECTION - Extremities Exam Extremities exam: Positive for: pedal pulses present. Negative for: calf tenderness, pedal edema, tenderness - Back Exam Back exam: absent: CVA tenderness (L), CVA tenderness (R) - Neurological Exam Neurological exam: Alert, CN II-XII Intact, Oriented x3, Reflexes Normal - Psychiatric Exam Psychiatric exam: Normal Mood - Skin Skin Exam: Dry Results - Vital Signs Recent Vital Signs: Last Vital Signs Temp 99.7 F H 05/11/18 16:17 Pulse 109 H 05/11/18 16:17 Resp 20 05/11/18 16:17 BP 160/98 H 05/11/18 16:17 Pulse Ox 95 05/11/18 16:17 - Labs Result Diagrams: 05/11/18 07:08 05/11/18 07:08 Labs: Laboratory Results - last 24 hr 05/11/18 05/11/18 07:08 07:08 WBC 10.6 RBC 4.31 L Hgb 12.0 Hct 35.9 MCV 83.3 MCH 27.9 MCHC 33.5 RDW 15.2 H Plt Count 309 MPV 9.0 Neut % (Auto) 66.3 Lymph % (Auto) 14.7 L [place] % (Auto) 15.0 H Eos % (Auto) 3.4 Baso % (Auto) 0.6 Neut # (Auto) 7.0 Lymph # (Auto) 1.6 [place] # (Auto) 1.6 H Eos # (Auto) 0.4 Baso # (Auto) 0.1 Sodium 142 Potassium 4.2 Chloride 101 Carbon Dioxide 29 Anion Gap 16 BUN 11 Creatinine 1.2 Est GFR ( Amer) > 60 Est GFR (Non-Af Amer) > 60 Random Glucose 107 Calcium 8.7 Phosphorus 4.6 H Magnesium 2.7 H Total Bilirubin 0.5 AST 42 ALT 61 Alkaline Phosphatase 222 H Total Protein 7.8 Albumin 3.7 Globulin 4.0 H Albumin/Globulin Ratio 0.9 L Assessment & Plan (1) Acute kidney injury Status: Acute (2) Elevated liver enzymes Status: Acute (3) Pneumonia Status: Acute - Assessment and Plan (Free Text) Assessment: 52 yo male with fever and pulmonary infiltrates In view of MALISSA, elevated LFT's , Fever and Infiltrates- would r/o Legionnaires disease consider CT chest would cont IV antibiotics possible d/c on Levofloxacin when stable for discharge
--- NOTE | 2018-05-11 21:13 | CP.PCM.PN ---
<Sergio Sosa - Last Filed: 05/11/18 21:13> Subjective - Date & Time of Evaluation Date of Evaluation: 05/11/18 Time of Evaluation: 07:30 - Subjective Subjective: Medicine Progress Note for Hospitalist Service Pt seen and examined at bedside this am. Denies any acute complaints this am. States he may have broke his fever this am. No acute events overnight. Pt observed oob to chair. Denies headache, dizziness, chest pain, sob, n/v/d/c, abd pain, urinary complaints, or other symptoms. Objective - Vital Signs/Intake and Output Vital Signs (last 24 hours): Temp Pulse Resp BP Pulse Ox 99.7 F H 109 H 20 160/98 H 95 05/11/18 16:17 05/11/18 16:17 05/11/18 16:17 05/11/18 16:17 05/11/18 16:17 Intake and Output: 05/11/18 05/12/18 18:59 06:59 Intake Total 800 Balance 800 - Medications Medications: Current Medications Acetaminophen (Tylenol 325mg Tab) 650 mg PO Q4 PRN PRN Reason: Fever >100.4 F Last Admin: 05/10/18 22:22 Dose: 650 mg Albuterol/Ipratropium (Duoneb 3 Mg/0.5 Mg (3 Ml) Ud) 3 ml INH RQ6 VIVIANA Last Admin: 05/11/18 19:33 Dose: 3 ml Famotidine (Pepcid) 40 mg PO DAILY VIVIANA Last Admin: 05/11/18 09:53 Dose: 40 mg Heparin Sodium (Porcine) (Heparin) 5,000 units SC Q12 VIVIANA Last Admin: 05/11/18 09:53 Dose: 5,000 units Ceftriaxone Sodium 1 gm/ (Sodium Chloride) 100 mls @ 100 mls/hr IVPB DAILY VIVIANA; Protocol Last Admin: 05/11/18 10:13 Dose: 100 mls/hr Azithromycin 500 mg/ Sodium (Chloride) 250 mls @ 250 mls/hr IVPB DAILY VIVIANA; Pr otocol Last Admin: 05/11/18 10:57 Dose: 250 mls/hr Oxymetazoline HCl (Afrin 0.05%) 0 ml NS Q12H PRN PRN Reason: Nasal congestion Last Admin: 05/10/18 09:32 Dose: 1 spr Saccharomyces Boulardii (Florastor) 250 mg PO BID VIVIANA Last Admin: 05/11/18 17:22 Dose: 250 mg - Labs Labs: 05/11/18 07:08 05/11/18 07:08 - Constitutional Appears: Non-toxic, No Acute Distress - Eye Exam Eye Exam: EOMI, Normal appearance, PERRL - ENT Exam ENT Exam: Mucous Membranes Moist - Respiratory Exam Respiratory Exam: Clear to Ausculation Bilateral, NORMAL BREATHING PATTERN - Cardiovascular Exam Cardiovascular Exam: REGULAR RHYTHM, +S1, +S2. absent: Gallop, Rubs, Murmur - GI/Abdominal Exam GI & Abdominal Exam: Soft, Normal Bowel Sounds. absent: Distended, Firm, Guardi ng, Rigid, Tenderness, Organomegaly, Rebound - Extremities Exam Extremities Exam: Full ROM, Normal Capillary Refill, Normal Inspection. absent: Calf Tenderness, Pedal Edema - Neurological Exam Neurological Exam: Alert, Awake, CN II-XII Intact, Normal Gait, Oriented x3 - Psychiatric Exam Psychiatric exam: Normal Affect, Normal Mood - Skin Skin Exam: Dry, Intact, Normal Color, Warm Assessment and Plan - Assessment and Plan (Free Text) Plan: Community acquired pneumonia WBC: 10.6 today, improving from 11 yesterday Pt continues to spike fevers, continue to monitor Chest x-ray: Hazy left upper lobe consolidation; repeat CXR today demonstrated slightly progressive increase in consolidation Negative for influenza and urine legionella pneumonia F/u strep pneumoniae and Mycoplasma pneumoniae Urine cx pos for Klebsiella pneumoniae Rocephin 1gm IV daily Zithromax 500mg IV daily Florastor 250mg PO BID Tylenol prn for fevers; AST/ALT trending down today Added duonebs q6h prn for shortness of breath; Afrin added prn for nasal congestion Dr. Mcmillan (ID) consulted, recs appreciated F/u CT chest w/o contrast F/u HIV test Acute kidney injury Possibly secondary to dehydration BUN/Cr: 27/1.7 on admission; today improved to 11.2 1/2 NS @ 100mls/hr Continue to monitor Elevated liver enzymes Possibly secondary to dehydration Continue hydration Continue to monitor Rocephin is hepatically dosed as well as Zithromax F/u hepatitis panel Elevated blood pressure reading without diagnosis of hypertension - resolved Possible secondary to present illness S/p Lopressor 5mg IV once IV hydration switched from NS to 1/2NS Continue to monitor with vital Q4H PPX GI: Not indicated DVT: SCDs Heart healthy diet Pt seen, examined with, and plan d/w Dr. Velázquez, attending physician. Sergio Sosa DO PGY-1, [employer] Pager #[phone] <Meseret Velázquez - Last Filed: 05/18/18 22:08> Objective - Vital Signs/Intake and Output Vital Signs (last 24 hours): Temp Pulse Resp BP Pulse Ox 99.2 F 108 H 20 148/93 H 96 05/12/18 07:40 05/12/18 07:40 05/12/18 07:40 05/12/18 07:40 05/12/18 07:40 - Labs Labs: 05/12/18 11:34 05/12/18 11:34 Attending/Attestation - Attestation I have personally seen and examined this patient.: Yes I have fully participated in the care of the patient.: Yes I have reviewed all pertinent clinical information, including history, physical exam and plan: Yes Notes (Text): Fever and pneumonia seen and examined continue antibiotics Agree with the resident's documentation
[2018-05-11 21:17] LABS: URINE BILIRUBIN NEGATIVE (NEGATIVE); URINE CLARITY Clear (Clear); URINE COLOR Yellow (YELLOW); URINE GLUCOSE (UA) NORMAL (Normal); URINE LEUKOCYTE ESTERASE NEG Leu/uL (Negative); URINE PROTEIN NEGATIVE (NEGATIVE); URINE UROBILINOGEN NORMAL mg/dL (0.2-1.0)
[2018-05-11 21:18] LABS: URINE BLOOD TRACE (NEGATIVE)
[2018-05-12] MEDS: Albuterol-Ipratrop 3 mg / 0.5 (3 ml) UD INH SCH ×3 (02:50→13:59)
[2018-05-12] MEDS: Sodium Chloride 0.45% 1,000 ML IV SCH (05:55)
[2018-05-12 06:46] VITALS: TEMP 99.2
[2018-05-12 07:42] VITALS: BP 148/93; PULSE 108; O2SAT 96
[2018-05-12] MEDS: Saccharomyces Boulardi 250 mg Cap PO SCH (09:44)
[2018-05-12] MEDS: Azithromycin 500 MG in Sodium Chloride 0.9% 250 ML IVPB SCH (09:45)
[2018-05-12 11:48] LABS: BASO # 0.1 K/uL (0.0-0.2); BASO % 0.6 % (0.0-2.0); EOS # 0.3 K/uL (0.0-0.7); EOS % 3.1 % (0.0-4.0); HEMOGLOBIN 11.6 g/dL (12.0-18.0); LYMPH # 1.2 K/uL (1.0-4.3); LYMPH % 12.9 % (20.0-40.0); MEAN CELL VOLUME 83.8 fL (80.0-94.0); MEAN CORPUSCULAR HEMOGLOBIN 27.9 pg (27.0-31.0); MEAN CORPUSCULAR HGB CONC 33.3 g/dL (33.0-37.0); MEAN PLATELET VOLUME 8.9 fL (7.2-11.7); MONO # 1.2 K/uL (0.0-0.8); MONO % 12.6 % (0.0-10.0); NEUT # 6.8 K/uL (1.8-7.0); NEUT % 70.8 % (50.0-75.0); RBC 4.16 Mil/uL (4.40-5.90); WHITE BLOOD COUNT 9.7 K/uL (4.8-10.8)
[2018-05-12 12:14] LABS: ALB/GLOB RATIO 0.9 (1.0-2.1); ALBUMIN 3.7 g/dL (3.5-5.0); ALT/SGPT 57 U/L (21-72); AST/SGOT 41 U/L (17-59); BLOOD UREA NITROGEN 13 mg/dL (9-20); CALCIUM 8.9 mg/dl (8.6-10.4); GFR NON-AFRICAN AMERICAN > 60
[2018-05-12 12:35] LABS: HEPATITIS B SURFACE AG Negative (NEGATIVE)
[2018-05-12 12:42] LABS: HEPATITIS A IGM NEGATIVE (NEGATIVE); HEPATITIS B CORE AB NEGATIVE (NEGATIVE)
[2018-05-12 12:52] LABS: HEPATITIS C ANTIBODY NEGATIVE (NEGATIVE)
--- NOTE | 2018-05-12 12:56 | CP.PCM.DIS ---
<Leticia Alexandre - Last Filed: 05/12/18 17:34> Provider - Provider Date of Admission: 05/08/18 17:45 Attending physician: Meseret Velázquez MD Time Spent in preparation of Discharge (in minutes): 29 Diagnosis - Discharge Diagnosis (1) Pneumonia Status: Acute Hospital Course - Lab Results Lab Results: Micro Results 05/09/18 01:21 Blood Blood Culture - Preliminary NO GROWTH AFTER 3 DAYS 05/09/18 01:20 Blood Blood Culture - Preliminary NO GROWTH AFTER 3 DAYS 05/08/18 20:25 Urine,Random Urine Culture - Final Klebsiella Pneumoniae Ssp Pneu Most Recent Lab Values WBC 9.7 K/uL (4.8-10.8) 05/12/18 11:34 RBC 4.16 Mil/uL (4.40-5.90) L 05/12/18 11:34 Hgb 11.6 g/dL (12.0-18.0) L 05/12/18 11:34 Hct 34.9 % (35.0-51.0) L 05/12/18 11:34 MCV 83.8 fL (80.0-94.0) 05/12/18 11:34 MCH 27.9 pg (27.0-31.0) 05/12/18 11:34 MCHC 33.3 g/dL (33.0-37.0) 05/12/18 11:34 RDW 15.0 % (11.5-14.5) H 05/12/18 11:34 Plt Count 357 K/uL (130-400) 05/12/18 11:34 MPV 8.9 fL (7.2-11.7) 05/12/18 11:34 Neut % (Auto) 70.8 % (50.0-75.0) 05/12/18 11:34 Lymph % (Auto) 12.9 % (20.0-40.0) L 05/12/18 11:34 [place] % (Auto) 12.6 % (0.0-10.0) H 05/12/18 11:34 Eos % (Auto) 3.1 % (0.0-4.0) 05/12/18 11:34 Baso % (Auto) 0.6 % (0.0-2.0) 05/12/18 11:34 Neut # (Auto) 6.8 K/uL (1.8-7.0) 05/12/18 11:34 Lymph # (Auto) 1.2 K/uL (1.0-4.3) 05/12/18 11:34 [place] # (Auto) 1.2 K/uL (0.0-0.8) H 05/12/18 11:34 Eos # (Auto) 0.3 K/uL (0.0-0.7) 05/12/18 11:34 Baso # (Auto) 0.1 K/uL (0.0-0.2) 05/12/18 11:34 Neutrophils % (Manual) 72 % (50-75) 05/08/18 16:12 Band Neutrophils % 1 % (0-2) 05/08/18 16:12 Lymphocytes % (Manual) 10 % (20-40) L 05/08/18 16:12 Monocytes % (Manual) 15 % (0-10) H 05/08/18 16:12 Eosinophils % (Manual) 2 % (0-4) 05/08/18 16:12 Platelet Estimate Normal (NORMAL) 05/08/18 16:12 Puncture Site Lr 05/08/18 18:51 pCO2 30 mm/Hg (35-45) L 05/08/18 18:51 pO2 90 mm/Hg (80-100) 05/08/18 18:51 HCO3 24.1 mmol/L (21-28) 05/08/18 18:51 ABG pH 7.47 (7.35-7.45) H 05/08/18 18:51 ABG Total CO2 22.7 mmol/L (22-28) 05/08/18 18:51 ABG O2 Saturation 98.7 % (95-98) H 05/08/18 18:51 ABG Base Excess -1.0 mmol/L (-2.0-3.0) 05/08/18 18:51 ABG Hemoglobin 12.3 g/dL (11.7-17.4) 05/08/18 18:51 ABG Carboxyhemoglobin 1.5 % (0.5-1.5) 05/08/18 18:51 POC ABG HHb (Measured) 1.3 % (0.0-5.0) 05/08/18 18:51 ABG Methemoglobin 0.9 % (0.0-3.0) 05/08/18 18:51 Saul Test Po 05/08/18 18:51 A-a O2 Difference 22.0 mm/Hg 05/08/18 18:51 Respiratory Index 0.2 05/08/18 18:51 Hgb O2 Saturation 96.4 % (95.0-98.0) 05/08/18 18:51 FiO2 21.0 % 05/08/18 18:51 Sodium 141 mmol/L (132-148) 05/12/18 11:34 Potassium 4.4 mmol/L (3.6-5.2) 05/12/18 11:34 Chloride 103 mmol/L (98-107) 05/12/18 11:34 Carbon Dioxide 28 mmol/L (22-30) 05/12/18 11:34 Anion Gap 15 (10-20) 05/12/18 11:34 BUN 13 mg/dL (9-20) 05/12/18 11:34 Creatinine 1.1 mg/dL (0.8-1.5) 05/12/18 11:34 Est GFR ( Amer) > 60 05/12/18 11:34 Est GFR (Non-Af Amer) > 60 05/12/18 11:34 POC Glucose (mg/dL) 106 mg/dL (65-110) 05/08/18 15:14 Random Glucose 99 mg/dL (75-110) 05/12/18 11:34 Calcium 8.9 mg/dl (8.6-10.4) 05/12/18 11:34 Phosphorus 4.0 mg/dL (2.5-4.5) 05/12/18 11:34 Magnesium 2.5 mg/dL (1.6-2.3) H 05/12/18 11:34 Total Bilirubin 0.5 mg/dL (0.2-1.3) 05/12/18 11:34 AST 41 U/L (17-59) 05/12/18 11:34 ALT 57 U/L (21-72) 05/12/18 11:34 Alkaline Phosphatase 193 U/L (38-126) H 05/12/18 11:34 Lactate Dehydrogenase 661 U/L (313-618) H 05/11/18 20:06 Total Protein 7.9 g/dL (6.3-8.3) 05/12/18 11:34 Albumin 3.7 g/dL (3.5-5.0) 05/12/18 11:34 Globulin 4.2 gm/dL (2.2-3.9) H 05/12/18 11:34 Albumin/Globulin Ratio 0.9 (1.0-2.1) L 05/12/18 11:34 Prostate Specific Ag 0.525 ng/mL (0.00-4.0) 05/11/18 18:48 Procalcitonin 0.25 NG/ML (0.19-0.49) 05/09/18 08:29 Urine Color Yellow (YELLOW) 05/11/18 21:00 Urine Clarity Clear (Clear) 05/11/18 21:00 Urine pH 6.0 (5.0-8.0) 05/11/18 21:00 Ur Specific [place] 1.011 (1.003-1.030) 05/11/18 21:00 Urine Protein Negative mg/dL (NEGATIVE) 05/11/18 21:00 Urine Glucose (UA) Normal mg/dL (Normal) 05/11/18 21:00 Urine Ketones Negative mg/dL (NEGATIVE) 05/11/18 21:00 Urine Blood Trace (NEGATIVE) H 05/11/18 21:00 Urine Nitrate Negative (NEGATIVE) 05/11/18 21:00 Urine Bilirubin Negative (NEGATIVE) 05/11/18 21:00 Urine Urobilinogen Normal mg/dL (0.2-1.0) 05/11/18 21:00 Ur Leukocyte Esterase Neg Juan/uL (Negative) 05/11/18 21:00 Urine WBC (Auto) < 1 /hpf (0-5) 05/11/18 21:00 Urine RBC (Auto) 1 /hpf (0-3) 05/11/18 21:00 Ur Squamous Epith Cells < 1 /hpf (0-5) 05/08/18 16:12 Urine Bacteria Rare (<OCC) 05/08/18 16:12 Hyaline Casts >20 /lpf (0-2) H 05/08/18 16:12 Hepatitis A IgM Ab Negative (NEGATIVE) 05/12/18 11:34 Hep Bs Antigen Negative (NEGATIVE) 05/12/18 11:34 Hep B Core IgM Ab Negative (NEGATIVE) 05/12/18 11:34 HIV 1&2 Antibody Screen Negative (NEGATIVE) 05/12/18 11:34 Influenza Typ A,B (EIA) Negative for flu a/b (NEGATIVE) 05/08/18 16:12 H.influenzae Type B Ag Negative (NEGATIVE) 05/08/18 18:07 Ur L.pneumophila Ag Negative (NEGATIVE) 05/11/18 21:00 Mycoplasma pneumon IgM Negative (NEGATIVE) 05/11/18 21:00 N.meningitidis ACY/W135 Negative (NEGATIVE) 05/08/18 18:07 N.meningi B/E.coli K1 Ag Negative (NEGATIVE) 05/08/18 18:07 Group B Strep Antigen Negative (NEGATIVE) 05/08/18 18:07 S. pneumoniae Antigen Negative (NEGATIVE) 05/08/18 18:07 - Hospital Course Hospital Course: Pt evaluated and treated at [facility] (Former[facility]) from 05/08/18-05/12/18. Chest xray, abdominal ultrasound and chest CT performed in ED. Labs, blood and urine cultures performed. Patient found to have pneumonia and UTI. Pulmonary microbiology workup was negative. Patient treated with IV antibiotics. Patient stable for discharge home on PO antibiotics, Levaquin 750mg po qd for 10 days. HPI on admission: "HPI: Patient is a 52 year old male with history of chronic sinusitis, who presents to the ED with complaints of subjective fever, generalized body aches and dry cough that started last Monday morning. Patient reports that he woke up with a fever last week Monday morning with Tmax of 102.5 at home, which he has been taking over the counter Tylenol for every 6 hours. Patient admits to associated symptoms of dry cough that is exacerbated with laying down, diffuse headache, blurry vision, dizziness (first episode during the weekend while standing, which was resolved with sitting down and second episode this morning), chills, onset of night sweat that started last night, palpitations, loss of appetite. Patient states that he has been on liquid diet and fruit since last Monday but denies any symptoms of facial pain, abdominal pain, nausea, vomiting, diarrhea, constipation, recent travels, recent sick contact, weight loss, hematochezia or urinary symptoms" Refer to EMR for complete summary of events Discharge Exam - Head Exam Head Exam: ATRAUMATIC, NORMAL INSPECTION, NORMOCEPHALIC - Eye Exam Eye Exam: EOMI, Normal appearance - ENT Exam ENT Exam: Mucous Membranes Moist, Normal Exam - Neck Exam Neck exam: Normal Inspection - Respiratory Exam Respiratory Exam: Decreased Breath Sounds, Rales, NORMAL BREATHING PATTERN - Cardiovascular Exam Cardiovascular Exam: REGULAR RHYTHM, +S1, +S2 - GI/Abdominal Exam GI & Abdominal Exam: Normal Bowel Sounds, Soft, Unremarkable. absent: Tenderness - Extremities Exam Extremities exam: normal inspection - Neurological Exam Neurological exam: Alert, Oriented x3 - Psychiatric Exam Psychiatric exam: Normal Affect, Normal Mood - Skin Skin Exam: Dry, Intact, Normal Color, Warm Discharge Plan - Discharge Medications Prescriptions: Levofloxacin [Levaquin] 750 mg PO DAILY #10 tablet - Follow Up Plan Condition: STABLE Disposition: HOME/ ROUTINE Instructions: Levofloxacin (Systemic), Pneumonia, Adult (DC), Acute Kidney Failure (DC) Additional Instructions: Patient is stable for discharge home. Patient is being discharged with a prescription for Levaquin 750mg, to be taken once a day for 10 days. Patient is advised to follow up in the clinic within 2 weeks of discharge, and to obtain a referral from them to return for a chest x-ray 3 weeks from discharge. Patient is advised to return to the ED with any worsening of symptoms. Referrals: Rita Hernandez MD [Staff Provider] - <Meseret Velázquez - Last Filed: 05/18/18 22:01> Provider - Provider Date of Admission: 05/08/18 17:45 Attending physician: Meseret Velázquez MD Hospital Course - Lab Results Lab Results: Micro Results 05/09/18 01:21 Blood Blood Culture - Final NO GROWTH AFTER 5 DAYS 05/09/18 01:21 Blood Gram Stain - Final TEST NOT PERFORMED 05/09/18 01:20 Blood Blood Culture - Final NO GROWTH AFTER 5 DAYS 05/11/18 19:40 Urine Urine Culture - Final No Growth (<1,000 CFU/ML) 05/08/18 20:25 Urine,Random Urine Culture - Final Klebsiella Pneumoniae Ssp Pneu Most Recent Lab Values WBC 9.7 K/uL (4.8-10.8) 05/12/18 11:34 RBC 4.16 Mil/uL (4.40-5.90) L 05/12/18 11:34 Hgb 11.6 g/dL (12.0-18.0) L 05/12/18 11:34 Hct 34.9 % (35.0-51.0) L 05/12/18 11:34 MCV 83.8 fL (80.0-94.0) 05/12/18 11:34 MCH 27.9 pg (27.0-31.0) 05/12/18 11:34 MCHC 33.3 g/dL (33.0-37.0) 05/12/18 11:34 RDW 15.0 % (11.5-14.5) H 05/12/18 11:34 Plt Count 357 K/uL (130-400) 05/12/18 11:34 MPV 8.9 fL (7.2-11.7) 05/12/18 11:34 Neut % (Auto) 70.8 % (50.0-75.0) 05/12/18 11:34 Lymph % (Auto) 12.9 % (20.0-40.0) L 05/12/18 11:34 [place] % (Auto) 12.6 % (0.0-10.0) H 05/12/18 11:34 Eos % (Auto) 3.1 % (0.0-4.0) 05/12/18 11:34 Baso % (Auto) 0.6 % (0.0-2.0) 05/12/18 11:34 Neut # (Auto) 6.8 K/uL (1.8-7.0) 05/12/18 11:34 Lymph # (Auto) 1.2 K/uL (1.0-4.3) 05/12/18 11:34 [place] # (Auto) 1.2 K/uL (0.0-0.8) H 05/12/18 11:34 Eos # (Auto) 0.3 K/uL (0.0-0.7) 05/12/18 11:34 Baso # (Auto) 0.1 K/uL (0.0-0.2) 05/12/18 11:34 Neutrophils % (Manual) 72 % (50-75) 05/08/18 16:12 Band Neutrophils % 1 % (0-2) 05/08/18 16:12 Lymphocytes % (Manual) 10 % (20-40) L 05/08/18 16:12 Monocytes % (Manual) 15 % (0-10) H 05/08/18 16:12 Eosinophils % (Manual) 2 % (0-4) 05/08/18 16:12 Platelet Estimate Normal (NORMAL) 05/08/18 16:12 Puncture Site Lr 05/08/18 18:51 pCO2 30 mm/Hg (35-45) L 05/08/18 18:51 pO2 90 mm/Hg (80-100) 05/08/18 18:51 HCO3 24.1 mmol/L (21-28) 05/08/18 18:51 ABG pH 7.47 (7.35-7.45) H 05/08/18 18:51 ABG Total CO2 22.7 mmol/L (22-28) 05/08/18 18:51 ABG O2 Saturation 98.7 % (95-98) H 05/08/18 18:51 ABG Base Excess -1.0 mmol/L (-2.0-3.0) 05/08/18 18:51 ABG Hemoglobin 12.3 g/dL (11.7-17.4) 05/08/18 18:51 ABG Carboxyhemoglobin 1.5 % (0.5-1.5) 05/08/18 18:51 POC ABG HHb (Measured) 1.3 % (0.0-5.0) 05/08/18 18:51 ABG Methemoglobin 0.9 % (0.0-3.0) 05/08/18 18:51 Saul Test Po 05/08/18 18:51 A-a O2 Difference 22.0 mm/Hg 05/08/18 18:51 Respiratory Index 0.2 05/08/18 18:51 Hgb O2 Saturation 96.4 % (95.0-98.0) 05/08/18 18:51 FiO2 21.0 % 05/08/18 18:51 Sodium 141 mmol/L (132-148) 05/12/18 11:34 Potassium 4.4 mmol/L (3.6-5.2) 05/12/18 11:34 Chloride 103 mmol/L (98-107) 05/12/18 11:34 Carbon Dioxide 28 mmol/L (22-30) 05/12/18 11:34 Anion Gap 15 (10-20) 05/12/18 11:34 BUN 13 mg/dL (9-20) 05/12/18 11:34 Creatinine 1.1 mg/dL (0.8-1.5) 05/12/18 11:34 Est GFR ( Amer) > 60 05/12/18 11:34 Est GFR (Non-Af Amer) > 60 05/12/18 11:34 POC Glucose (mg/dL) 106 mg/dL (65-110) 05/08/18 15:14 Random Glucose 99 mg/dL (75-110) 05/12/18 11:34 Calcium 8.9 mg/dl (8.6-10.4) 05/12/18 11:34 Phosphorus 4.0 mg/dL (2.5-4.5) 05/12/18 11:34 Magnesium 2.5 mg/dL (1.6-2.3) H 05/12/18 11:34 Total Bilirubin 0.5 mg/dL (0.2-1.3) 05/12/18 11:34 AST 41 U/L (17-59) 05/12/18 11:34 ALT 57 U/L (21-72) 05/12/18 11:34 Alkaline Phosphatase 193 U/L (38-126) H 05/12/18 11:34 Lactate Dehydrogenase 661 U/L (313-618) H 05/11/18 20:06 Total Protein 7.9 g/dL (6.3-8.3) 05/12/18 11:34 Albumin 3.7 g/dL (3.5-5.0) 05/12/18 11:34 Globulin 4.2 gm/dL (2.2-3.9) H 05/12/18 11:34 Albumin/Globulin Ratio 0.9 (1.0-2.1) L 05/12/18 11:34 Prostate Specific Ag 0.525 ng/mL (0.00-4.0) 05/11/18 18:48 Procalcitonin 0.25 NG/ML (0.19-0.49) 05/09/18 08:29 Urine Color Yellow (YELLOW) 05/11/18 21:00 Urine Clarity Clear (Clear) 05/11/18 21:00 Urine pH 6.0 (5.0-8.0) 05/11/18 21:00 Ur Specific [place] 1.011 (1.003-1.030) 05/11/18 21:00 Urine Protein Negative mg/dL (NEGATIVE) 05/11/18 21:00 Urine Glucose (UA) Normal mg/dL (Normal) 05/11/18 21:00 Urine Ketones Negative mg/dL (NEGATIVE) 05/11/18 21:00 Urine Blood Trace (NEGATIVE) H 05/11/18 21:00 Urine Nitrate Negative (NEGATIVE) 05/11/18 21:00 Urine Bilirubin Negative (NEGATIVE) 05/11/18 21:00 Urine Urobilinogen Normal mg/dL (0.2-1.0) 05/11/18 21:00 Ur Leukocyte Esterase Neg Juan/uL (Negative) 05/11/18 21:00 Urine WBC (Auto) < 1 /hpf (0-5) 05/11/18 21:00 Urine RBC (Auto) 1 /hpf (0-3) 05/11/18 21:00 Ur Squamous Epith Cells < 1 /hpf (0-5) 05/08/18 16:12 Urine Bacteria Rare (<OCC) 05/08/18 16:12 Hyaline Casts >20 /lpf (0-2) H 05/08/18 16:12 Hepatitis A IgM Ab Negative (NEGATIVE) 05/12/18 11:34 Hep Bs Antigen Negative (NEGATIVE) 05/12/18 11:34 Hep B Core IgM Ab Negative (NEGATIVE) 05/12/18 11:34 Hepatitis C Antibody Negative (NEGATIVE) 05/12/18 11:34 HIV 1&2 Antibody Screen Negative (NEGATIVE) 05/12/18 11:34 Influenza Typ A,B (EIA) Negative for flu a/b (NEGATIVE) 05/08/18 16:12 H.influenzae Type B Ag Negative (NEGATIVE) 05/08/18 18:07 Ur L.pneumophila Ag Negative (NEGATIVE) 05/11/18 21:00 Mycoplasma pneumon IgG >5.00 (<=0.90) H 05/09/18 08:29 Mycoplasma pneumon IgM Negative (NEGATIVE) 05/11/18 21:00 N.meningitidis ACY/W135 Negative (NEGATIVE) 05/08/18 18:07 N.meningi B/E.coli K1 Ag Negative (NEGATIVE) 05/08/18 18:07 Group B Strep Antigen Negative (NEGATIVE) 05/08/18 18:07 S. pneumoniae Antigen Negative (NEGATIVE) 05/08/18 18:07 Attending/Attestation - Attestation I have personally seen and examined this patient.: Yes I have fully participated in the care of the patient.: Yes I have reviewed all pertinent clinical information, including history, physical exam and plan: Yes
--- NOTE | 2018-05-12 14:41 | US ---
HISTORY: fever and abn LFT's COMPARISON: None available. TECHNIQUE: Sonographic evaluation of the abdomen. FINDINGS: Examination limited by habitus. LIVER: Measures 17.9 cm in sagittal dimension. Echogenic liver may be seen in setting of hepatic parenchymal disease or fatty infiltration. Echogenic 1.1 x 1.3 x 1.4 cm left hepatic lobe lesion. Echogenic 0.9 x 0.8 x 0.7 cm right hepatic lobe lesion. The main portal vein appears patent with normal directional flow. No intrahepatic bile duct dilatation. GALLBLADDER: No gallstones. No gallbladder wall thickening. Negative sonographic Nicole's sign as assessed by the pasteurizing supervisor. COMMON BILE DUCT: Measures 4 mm. PANCREAS: Not well visualized. RIGHT KIDNEY: Measures 10.0 x 4.9 x 5.7 cm. 1.0 x 0.7 x 1.1 cm mid to lower pole renal cyst. No obstructing calculus or hydronephrosis. LEFT KIDNEY: Measures 10.4 x 6.1 x 6.0cm. No obstructing calculus or hydronephrosis identified. SPLEEN: Measures approximately 9.7 cm. AORTA: Limited views appear unremarkable. IVC: Limited views appear unremarkable. OTHER FINDINGS: None. IMPRESSION: Limited study. Echogenic liver may be seen in setting of hepatic parenchymal disease or fatty infiltration. Two echogenic hepatic masses, indeterminate. Dedicated cross-sectional imaging suggested. 1.1 cm mid to lower pole right renal cyst.
--- NOTE | 2018-05-12 16:48 | CT ---
Date of service: 05/11/18 CT chest without IV contrast Indication: Fever spikes on antibiotics/pneumonia Technique: Contiguous axial images were obtained through the chest without intravenous contrast enhancement. Sagittal and coronal reconstructions were generated and reviewed. This CT exam was performed using 1 or more of the following dose reduction techniques: Automated exposure control, adjustment of the MAA and/or kV according to patient size, and/or use of iterative reconstruction technique. Radiation dose (DLP): 948.62 MGy-cm. Comparison: Chest x-ray performed 05/11/18 Findings: Visualized portions of the inferior thyroid gland appear unremarkable. The unenhanced mediastinal and hilar vascular structures appear grossly unremarkable. The heart appears within normal limits of size. Enlarged prevascular/mediastinal lymph nodes largest measuring approximately 11 mm in short axis. No focal consolidation. No pleural effusion. No pneumothorax. Left upper lobe consolidation consistent with pneumonia. Limited visualization of the noncontrast upper abdomen appears grossly unremarkable. No acute osseous abnormality is detected. Impression: Left upper lobe consolidation consistent with pneumonia. Recommend short-term follow-up upon completion of treatment of acute symptoms in order to assess for complete resolution. Enlarged prevascular/mediastinal lymph nodes largest measuring approximately 11 mm in short axis. Preliminary impression was provided by Balzo.
[2018-05-13] MEDS ORDERED: Influenza Vaccine 60 MCG/0.5 ML SYR (3 yr & up) IM ONE (10:00)
[2018-05-13] MEDS ORDERED: Pneumococcal 23-Valent Vaccine IM ONE (10:00)
== END 2018-05-12 15:00 | disposition home or self-care (01) | DRG 139 ==
LOC: C.ER 14:58 → OBSVTOIN 17:45 → C.9E 17:45 → C.3T 21:29
PROVIDERS: ADMIT Internal Medicine; ATTEND Internal Medicine
DX: J18.9 Pneumonia, unspecified organism (principal); N17.9 Acute kidney failure, unspecified; N39.0 Urinary tract infection, site not specified; B96.1 Klebsiella pneumoniae [K. pneumoniae] as the cause of diseases classified elsewhere; J32.9 Chronic sinusitis, unspecified